=== PATIENT | female | born 1960 | race African-American/Black ===

== ENCOUNTER → 2017-11-11 | Outpatient (CLI) | payer MEDICAID ==
[~2017-11-11] MED LIST: ACET325T11 PO; AMOX500C PO; ESTR.625 PO; GABA300C3 PO
--- NOTE | 2017-11-11 14:44 | RADRPT ---
EXAM DATE/TIME: 11/11/2017 13:58 [place] COMPARISON: No previous studies available for comparison. INDICATIONS : Short of breath. MEDICAL HISTORY : SURGICAL HISTORY : Hysterectomy. Right breast lumpectomy. ENCOUNTER: Initial ACUITY: 4 - 6 months PAIN SCORE: 0/10 LOCATION: Bilateral chest FINDINGS: PA and lateral views of the chest demonstrate the lungs to be symmetrically aerated without evidence of mass, infiltrate or effusion. The cardiomediastinal contours are unremarkable. Osseous structure s are intact. CONCLUSION: No acute disease. Jonh Hernandez MD FACR on November 11, 2017 at 14:42 Board Certified Radiologist. This report was verified electronically.
--- NOTE | 2017-11-16 12:04 | RSPPFT ---
DATE OF PROCEDURE: 11/11/17 COMMENTS: Spirometry with FVC of 2.2,l FEV1 of 1.0, FEV1/FVC ratio 45%. A positive and significant response to acutely inhaled bronchodilator noted. IMPRESSION: 1. Severe airways obstruction. 2. Positive response to inhaled bronchodilator however, the difference between pre- and post- Bronchodilator, I believe a repeat study would be in order.
== END ==
LOC: HRSP 12:54
PROVIDERS: ATTEND Internal Medicine Sleep Medicine
DX: R06.89 Other abnormalities of breathing (principal); R06.09 Other forms of dyspnea
CPT/HCPCS: 71046; 94060